=== PATIENT | male | born 1980 | race Caucasian/White ===

== ENCOUNTER 2021-01-14 18:59 | Inpatient (IN) | payer OTHER ==
[2021-01-14 21:17] VITALS: BMI 30.7
[2021-01-14] MEDS ORDERED: MAG HYDROX/AL HYDROX/SIMETH 30 ML UNIT-DOSE CUP PO PRN (21:36)
[2021-01-14] MEDS ORDERED: ACETAMINOPHEN 325 MG TABLET (FP) PO PRN (21:36)
[2021-01-14] MEDS ORDERED: MAGNESIUM CITRATE 300 ML BOTTLE PO PRN (21:36)
[2021-01-14] MEDS ORDERED: LOPERAMIDE HCL 2 MG CAPSULE PO PRN (21:36)
[2021-01-14] MEDS ORDERED: guaiFENesin 200 MG/10 ML 10 ML UNIT-DOSE CUPS PO PRN (21:36)
[2021-01-14] MEDS ORDERED: MAGNESIUM HYDROX 2400MG/30ML ORAL SUSPENSION 30 ML CUP PO PRN (21:36)
[2021-01-14] MEDS ORDERED: P-EPHED 60MG/TRIPROLIDI 2.5MG TABLET PO PRN (21:36)
[2021-01-14] MEDS ORDERED: MENTHOL/PHENOL 1 EACH UD MM PRN (21:36)
[2021-01-14] MEDS ORDERED: MELATONIN 5 MG TABLETS PO SCH (22:00)
[2021-01-14] MEDS ORDERED: TUBERCULIN PPD 5 TU/0.1ML VIAL ID ONE (22:52)
[2021-01-14] MEDS: THIAMINE HCL 100 MG TABLET (FP) PO SCH (22:53)
[2021-01-15] MEDS: hydrOXYzine PAMOATE 25 MG CAPSULE (FP) PO PRN ×2 (06:31→17:30)
[2021-01-15] MEDS: IBUPROFEN 400 MG TABLET (FP) PO PRN ×2 (06:31→17:30)
[2021-01-15] MEDS: PRENATAL VITAMINS W/ FOLIC ACID TABLET (FP) PO SCH (11:13)
[2021-01-15] MEDS: FLUoxetine HCL 20 MG CAPSULE PO SCH (15:14)
[2021-01-15] MEDS: THIAMINE HCL 100 MG TABLET (FP) PO SCH (21:00)
[2021-01-15] MEDS ORDERED: SUVOREXANT 10 MG TABLET PO PRN (22:00)
[2021-01-16] MEDS: PRENATAL VITAMINS W/ FOLIC ACID TABLET (FP) PO SCH (10:45)
[2021-01-16] MEDS: FLUoxetine HCL 20 MG CAPSULE PO SCH (10:45)
[2021-01-16] MEDS: THIAMINE HCL 100 MG TABLET (FP) PO SCH (23:27)
[2021-01-17] MEDS: PRENATAL VITAMINS W/ FOLIC ACID TABLET (FP) PO SCH (10:20)
[2021-01-17] MEDS: FLUoxetine HCL 20 MG CAPSULE PO SCH (10:20)
[2021-01-17] MEDS: SUVOREXANT 15 MG TABLET PO PRN (21:02)
[2021-01-17] MEDS: THIAMINE HCL 100 MG TABLET (FP) PO SCH (21:02)
[2021-01-17] MEDS: TOLNAFTATE 1% CREAM 15 GM TUBE TP SCH (21:03)
[2021-01-18] MEDS: PRENATAL VITAMINS W/ FOLIC ACID TABLET (FP) PO SCH (10:27)
[2021-01-18] MEDS: FLUoxetine HCL 20 MG CAPSULE PO SCH (10:28)
[2021-01-18] MEDS: TOLNAFTATE 1% CREAM 15 GM TUBE TP SCH ×2 (10:29→21:36)
[2021-01-18 14:07] LABS: SARS-CoV-2 NAA Not Detected (Not Detected)
[2021-01-18] MEDS: SUVOREXANT 15 MG TABLET PO PRN (21:34)
[2021-01-18] MEDS: hydrOXYzine PAMOATE 25 MG CAPSULE (FP) PO PRN (21:34)
[2021-01-18] MEDS: THIAMINE HCL 100 MG TABLET (FP) PO SCH (21:34)
[2021-01-18] MEDS: IBUPROFEN 400 MG TABLET (FP) PO PRN (21:35)
[2021-01-18] MEDS: CARBAMIDE PEROXIDE 6.5% OTIC 15 ML BOTTLE AU SCH (23:33)
[2021-01-19] MEDS: CARBAMIDE PEROXIDE 6.5% OTIC 15 ML BOTTLE AU SCH ×2 (10:30→21:09)
[2021-01-19] MEDS: FLUoxetine HCL 20 MG CAPSULE PO SCH (10:31)
[2021-01-19] MEDS: PRENATAL VITAMINS W/ FOLIC ACID TABLET (FP) PO SCH (10:31)
[2021-01-19] MEDS: TOLNAFTATE 1% CREAM 15 GM TUBE TP SCH ×2 (10:32→21:10)
[2021-01-19] MEDS: IBUPROFEN 400 MG TABLET (FP) PO PRN (21:09)
[2021-01-19] MEDS: THIAMINE HCL 100 MG TABLET (FP) PO SCH (21:09)
[2021-01-19] MEDS: SUVOREXANT 15 MG TABLET PO PRN (21:09)
[2021-01-20] MEDS: TOLNAFTATE 1% CREAM 15 GM TUBE TP SCH ×2 (09:39→22:44)
[2021-01-20] MEDS: CARBAMIDE PEROXIDE 6.5% OTIC 15 ML BOTTLE AU SCH ×2 (09:39→21:35)
[2021-01-20] MEDS: PRENATAL VITAMINS W/ FOLIC ACID TABLET (FP) PO SCH (09:39)
[2021-01-20] MEDS: FLUoxetine HCL 20 MG CAPSULE PO SCH (09:39)
[2021-01-20] MEDS: THIAMINE HCL 100 MG TABLET (FP) PO SCH (21:32)
[2021-01-20] MEDS: SUVOREXANT 15 MG TABLET PO PRN (21:32)
[2021-01-20] MEDS: IBUPROFEN 400 MG TABLET (FP) PO PRN (21:33)
[2021-01-21] MEDS: PRENATAL VITAMINS W/ FOLIC ACID TABLET (FP) PO SCH (10:07)
[2021-01-21] MEDS: FLUoxetine HCL 20 MG CAPSULE PO SCH (10:07)
[2021-01-21] MEDS: CARBAMIDE PEROXIDE 6.5% OTIC 15 ML BOTTLE AU SCH ×2 (10:07→22:10)
[2021-01-21] MEDS: hydrOXYzine PAMOATE 25 MG CAPSULE (FP) PO PRN (10:07)
[2021-01-21] MEDS: IBUPROFEN 400 MG TABLET (FP) PO PRN (10:08)
[2021-01-21] MEDS: TOLNAFTATE 1% CREAM 15 GM TUBE TP SCH ×2 (10:09→21:07)
[2021-01-21] MEDS ORDERED: LIDOCAINE VISCOUS 2% ORAL/TOP 15 ML UNIT-DOSE CUP MM PRN (10:40)
[2021-01-21] MEDS: AMOXICILLIN 500 MG CAPSULE (FP) PO SCH ×2 (12:41→20:45)
[2021-01-21] MEDS: VITAMINS A AND D TOPICAL OINTMENT 60 GM TUBE TP SCH ×3 (12:42→23:44)
[2021-01-21] MEDS: SUVOREXANT 15 MG TABLET PO PRN (21:07)
[2021-01-21] MEDS: THIAMINE HCL 100 MG TABLET (FP) PO SCH (21:07)
[2021-01-22] MEDS: VITAMINS A AND D TOPICAL OINTMENT 60 GM TUBE TP SCH ×4 (06:13→23:53)
[2021-01-22] MEDS: AMOXICILLIN 500 MG CAPSULE (FP) PO SCH ×3 (06:13→20:50)
[2021-01-22] MEDS: PRENATAL VITAMINS W/ FOLIC ACID TABLET (FP) PO SCH (10:01)
[2021-01-22] MEDS: FLUoxetine HCL 20 MG CAPSULE PO SCH (10:01)
[2021-01-22] MEDS: TOLNAFTATE 1% CREAM 15 GM TUBE TP SCH ×2 (10:02→21:20)
[2021-01-22] MEDS: CARBAMIDE PEROXIDE 6.5% OTIC 15 ML BOTTLE AU SCH ×2 (10:02→22:41)
[2021-01-22] MEDS: SUVOREXANT 15 MG TABLET PO PRN (21:20)
[2021-01-22] MEDS: THIAMINE HCL 100 MG TABLET (FP) PO SCH (21:20)
[2021-01-23] MEDS: VITAMINS A AND D TOPICAL OINTMENT 60 GM TUBE TP SCH ×3 (06:06→19:08)
[2021-01-23] MEDS: AMOXICILLIN 500 MG CAPSULE (FP) PO SCH ×3 (06:06→21:17)
[2021-01-23] MEDS: FLUoxetine HCL 20 MG CAPSULE PO SCH (09:36)
[2021-01-23] MEDS: TOLNAFTATE 1% CREAM 15 GM TUBE TP SCH ×2 (09:36→21:18)
[2021-01-23] MEDS: PRENATAL VITAMINS W/ FOLIC ACID TABLET (FP) PO SCH (09:36)
[2021-01-23] MEDS: CARBAMIDE PEROXIDE 6.5% OTIC 15 ML BOTTLE AU SCH ×2 (09:37→21:19)
[2021-01-23] MEDS: THIAMINE HCL 100 MG TABLET (FP) PO SCH (21:17)
[2021-01-23] MEDS: SUVOREXANT 15 MG TABLET PO PRN (21:18)
[2021-01-24] MEDS: VITAMINS A AND D TOPICAL OINTMENT 60 GM TUBE TP SCH ×4 (01:10→19:11)
[2021-01-24] MEDS: AMOXICILLIN 500 MG CAPSULE (FP) PO SCH ×3 (04:01→21:19)
[2021-01-24] MEDS: FLUoxetine HCL 20 MG CAPSULE PO SCH (09:42)
[2021-01-24] MEDS: PRENATAL VITAMINS W/ FOLIC ACID TABLET (FP) PO SCH (09:43)
[2021-01-24] MEDS: TOLNAFTATE 1% CREAM 15 GM TUBE TP SCH ×2 (09:43→21:20)
[2021-01-24] MEDS: CARBAMIDE PEROXIDE 6.5% OTIC 15 ML BOTTLE AU SCH ×2 (09:43→21:20)
[2021-01-24] MEDS: THIAMINE HCL 100 MG TABLET (FP) PO SCH (21:19)
[2021-01-24] MEDS: SUVOREXANT 15 MG TABLET PO PRN (21:19)
[2021-01-24] MEDS: IBUPROFEN 400 MG TABLET (FP) PO PRN (22:30)
[2021-01-25] MEDS: VITAMINS A AND D TOPICAL OINTMENT 60 GM TUBE TP SCH ×5 (00:17→23:30)
[2021-01-25] MEDS: AMOXICILLIN 500 MG CAPSULE (FP) PO SCH ×3 (06:20→20:45)
[2021-01-25] MEDS: CARBAMIDE PEROXIDE 6.5% OTIC 15 ML BOTTLE AU SCH ×2 (12:35→23:29)
[2021-01-25] MEDS: TOLNAFTATE 1% CREAM 15 GM TUBE TP SCH ×2 (12:35→21:16)
[2021-01-25] MEDS: PRENATAL VITAMINS W/ FOLIC ACID TABLET (FP) PO SCH (12:35)
[2021-01-25] MEDS: FLUoxetine HCL 20 MG CAPSULE PO SCH (12:35)
[2021-01-25] MEDS: SUVOREXANT 15 MG TABLET PO PRN (21:15)
[2021-01-25] MEDS: THIAMINE HCL 100 MG TABLET (FP) PO SCH (21:15)
[2021-01-26] MEDS: AMOXICILLIN 500 MG CAPSULE (FP) PO SCH ×3 (06:05→20:45)
[2021-01-26] MEDS: VITAMINS A AND D TOPICAL OINTMENT 60 GM TUBE TP SCH ×4 (06:42→23:59)
[2021-01-26] MEDS: CARBAMIDE PEROXIDE 6.5% OTIC 15 ML BOTTLE AU SCH ×2 (10:44→21:04)
[2021-01-26] MEDS: FLUoxetine HCL 20 MG CAPSULE PO SCH (10:45)
[2021-01-26] MEDS: TOLNAFTATE 1% CREAM 15 GM TUBE TP SCH ×2 (10:45→21:05)
[2021-01-26] MEDS: PRENATAL VITAMINS W/ FOLIC ACID TABLET (FP) PO SCH (10:45)
[2021-01-26] MEDS: THIAMINE HCL 100 MG TABLET (FP) PO SCH (21:03)
[2021-01-26] MEDS: SUVOREXANT 5 MG TABLET PO PRN (21:04)
[2021-01-26] MEDS: IBUPROFEN 400 MG TABLET (FP) PO PRN (22:58)
[2021-01-27] MEDS: VITAMINS A AND D TOPICAL OINTMENT 60 GM TUBE TP SCH ×4 (06:00→23:19)
[2021-01-27] MEDS: AMOXICILLIN 500 MG CAPSULE (FP) PO SCH ×3 (06:00→21:14)
[2021-01-27] MEDS: FLUoxetine HCL 20 MG CAPSULE PO SCH (10:44)
[2021-01-27] MEDS: TOLNAFTATE 1% CREAM 15 GM TUBE TP SCH ×2 (10:45→21:16)
[2021-01-27] MEDS: PRENATAL VITAMINS W/ FOLIC ACID TABLET (FP) PO SCH (10:45)
[2021-01-27] MEDS: CARBAMIDE PEROXIDE 6.5% OTIC 15 ML BOTTLE AU SCH ×2 (10:45→21:16)
[2021-01-27] MEDS: THIAMINE HCL 100 MG TABLET (FP) PO SCH (21:14)
[2021-01-27] MEDS: SUVOREXANT 5 MG TABLET PO PRN (21:15)
[2021-01-28] MEDS: VITAMINS A AND D TOPICAL OINTMENT 60 GM TUBE TP SCH ×3 (05:55→18:40)
[2021-01-28] MEDS: AMOXICILLIN 500 MG CAPSULE (FP) PO SCH (05:55)
[2021-01-28] MEDS: TOLNAFTATE 1% CREAM 15 GM TUBE TP SCH ×2 (10:00→21:03)
[2021-01-28] MEDS: CARBAMIDE PEROXIDE 6.5% OTIC 15 ML BOTTLE AU SCH ×2 (10:00→23:32)
[2021-01-28] MEDS: PRENATAL VITAMINS W/ FOLIC ACID TABLET (FP) PO SCH (10:00)
[2021-01-28] MEDS: FLUoxetine HCL 20 MG CAPSULE PO SCH (10:00)
[2021-01-28] MEDS: THIAMINE HCL 100 MG TABLET (FP) PO SCH (21:01)
[2021-01-28] MEDS: SUVOREXANT 5 MG TABLET PO PRN (21:02)
[2021-01-28] MEDS ORDERED: SUVOREXANT 10 MG TABLET PO PRN (22:00)
[2021-01-29] MEDS: VITAMINS A AND D TOPICAL OINTMENT 60 GM TUBE TP SCH ×5 (00:03→23:40)
[2021-01-29] MEDS: PRENATAL VITAMINS W/ FOLIC ACID TABLET (FP) PO SCH (09:45)
[2021-01-29] MEDS: FLUoxetine HCL 20 MG CAPSULE PO SCH (09:45)
[2021-01-29] MEDS: CARBAMIDE PEROXIDE 6.5% OTIC 15 ML BOTTLE AU SCH ×2 (09:46→22:19)
[2021-01-29] MEDS: TOLNAFTATE 1% CREAM 15 GM TUBE TP SCH ×2 (09:46→22:19)
[2021-01-29] MEDS: THIAMINE HCL 100 MG TABLET (FP) PO SCH (21:02)
[2021-01-29] MEDS: SUVOREXANT 5 MG TABLET PO PRN (21:46)
[2021-01-30] MEDS: VITAMINS A AND D TOPICAL OINTMENT 60 GM TUBE TP SCH (07:03)
[2021-01-30] MEDS ORDERED: VITAMINS A AND D TOPICAL OINTMENT 60 GM TUBE TP PRN (08:40)
[2021-01-30] MEDS: hydrOXYzine PAMOATE 25 MG CAPSULE (FP) PO PRN (09:37)
[2021-01-30] MEDS: PRENATAL VITAMINS W/ FOLIC ACID TABLET (FP) PO SCH (09:37)
[2021-01-30] MEDS: FLUoxetine HCL 20 MG CAPSULE PO SCH (09:37)
[2021-01-30] MEDS: CARBAMIDE PEROXIDE 6.5% OTIC 15 ML BOTTLE AU SCH ×2 (09:37→22:50)
[2021-01-30] MEDS: TOLNAFTATE 1% CREAM 15 GM TUBE TP SCH ×2 (09:38→21:09)
[2021-01-30] MEDS: THIAMINE HCL 100 MG TABLET (FP) PO SCH (21:08)
[2021-01-30] MEDS: SUVOREXANT 5 MG TABLET PO PRN (21:08)
[2021-01-31] MEDS: PRENATAL VITAMINS W/ FOLIC ACID TABLET (FP) PO SCH (09:34)
[2021-01-31] MEDS: FLUoxetine HCL 20 MG CAPSULE PO SCH (09:34)
[2021-01-31] MEDS: CARBAMIDE PEROXIDE 6.5% OTIC 15 ML BOTTLE AU SCH ×2 (09:34→22:57)
[2021-01-31] MEDS: TOLNAFTATE 1% CREAM 15 GM TUBE TP SCH ×2 (09:35→21:20)
[2021-01-31] MEDS: SUVOREXANT 5 MG TABLET PO PRN (21:19)
[2021-01-31] MEDS: THIAMINE HCL 100 MG TABLET (FP) PO SCH (21:19)
[2021-02-01] MEDS: FLUoxetine HCL 20 MG CAPSULE PO SCH (09:26)
[2021-02-01] MEDS: PRENATAL VITAMINS W/ FOLIC ACID TABLET (FP) PO SCH (09:26)
[2021-02-01] MEDS: CARBAMIDE PEROXIDE 6.5% OTIC 15 ML BOTTLE AU SCH ×2 (09:27→21:08)
[2021-02-01] MEDS: TOLNAFTATE 1% CREAM 15 GM TUBE TP SCH ×2 (09:27→21:08)
[2021-02-01] MEDS: THIAMINE HCL 100 MG TABLET (FP) PO SCH (21:08)
[2021-02-01] MEDS: hydrOXYzine PAMOATE 25 MG CAPSULE (FP) PO PRN (21:09)
[2021-02-02] MEDS: FLUoxetine HCL 20 MG CAPSULE PO SCH (10:14)
[2021-02-02] MEDS: PRENATAL VITAMINS W/ FOLIC ACID TABLET (FP) PO SCH (10:14)
[2021-02-02] MEDS: CARBAMIDE PEROXIDE 6.5% OTIC 15 ML BOTTLE AU SCH ×2 (10:15→21:09)
[2021-02-02] MEDS: TOLNAFTATE 1% CREAM 15 GM TUBE TP SCH ×2 (10:15→21:09)
[2021-02-02] MEDS: THIAMINE HCL 100 MG TABLET (FP) PO SCH (21:08)
[2021-02-03 07:44] VITALS: BP 135/84; PULSE 68; TEMP 97.8
[2021-02-03] MEDS: PRENATAL VITAMINS W/ FOLIC ACID TABLET (FP) PO SCH (10:04)
[2021-02-03] MEDS: FLUoxetine HCL 20 MG CAPSULE PO SCH (10:05)
[2021-02-03] MEDS: CARBAMIDE PEROXIDE 6.5% OTIC 15 ML BOTTLE AU SCH ×2 (10:05→22:27)
[2021-02-03] MEDS: TOLNAFTATE 1% CREAM 15 GM TUBE TP SCH ×2 (10:05→21:00)
[2021-02-03] MEDS: THIAMINE HCL 100 MG TABLET (FP) PO SCH (21:00)
[2021-02-03] MEDS: hydrOXYzine PAMOATE 25 MG CAPSULE (FP) PO PRN (21:00)
[2021-02-04] MEDS: CARBAMIDE PEROXIDE 6.5% OTIC 15 ML BOTTLE AU SCH ×2 (09:29→21:23)
[2021-02-04] MEDS: PRENATAL VITAMINS W/ FOLIC ACID TABLET (FP) PO SCH (09:29)
[2021-02-04] MEDS: TOLNAFTATE 1% CREAM 15 GM TUBE TP SCH ×2 (09:29→21:23)
[2021-02-04] MEDS: FLUoxetine HCL 20 MG CAPSULE PO SCH (09:29)
[2021-02-04] MEDS: hydrOXYzine PAMOATE 25 MG CAPSULE (FP) PO PRN (21:23)
[2021-02-04] MEDS: THIAMINE HCL 100 MG TABLET (FP) PO SCH (21:23)
[2021-02-05] MEDS: FLUoxetine HCL 20 MG CAPSULE PO SCH (11:41)
[2021-02-05] MEDS: PRENATAL VITAMINS W/ FOLIC ACID TABLET (FP) PO SCH (11:41)
[2021-02-05] MEDS: CARBAMIDE PEROXIDE 6.5% OTIC 15 ML BOTTLE AU SCH ×2 (15:58→21:22)
[2021-02-05] MEDS: TOLNAFTATE 1% CREAM 15 GM TUBE TP SCH ×2 (15:58→21:22)
[2021-02-05] MEDS: THIAMINE HCL 100 MG TABLET (FP) PO SCH (21:21)
[2021-02-05] MEDS: hydrOXYzine PAMOATE 25 MG CAPSULE (FP) PO PRN (21:21)
[2021-02-06] MEDS: CARBAMIDE PEROXIDE 6.5% OTIC 15 ML BOTTLE AU SCH ×2 (09:53→21:17)
[2021-02-06] MEDS: PRENATAL VITAMINS W/ FOLIC ACID TABLET (FP) PO SCH (09:53)
[2021-02-06] MEDS: FLUoxetine HCL 20 MG CAPSULE PO SCH (09:53)
[2021-02-06] MEDS: TOLNAFTATE 1% CREAM 15 GM TUBE TP SCH ×2 (09:53→21:17)
[2021-02-06] MEDS: THIAMINE HCL 100 MG TABLET (FP) PO SCH (21:15)
[2021-02-06] MEDS: hydrOXYzine PAMOATE 25 MG CAPSULE (FP) PO PRN (21:16)
[2021-02-07] MEDS: hydrOXYzine PAMOATE 25 MG CAPSULE (FP) PO PRN (09:18)
[2021-02-07] MEDS: PRENATAL VITAMINS W/ FOLIC ACID TABLET (FP) PO SCH (09:18)
[2021-02-07] MEDS: CARBAMIDE PEROXIDE 6.5% OTIC 15 ML BOTTLE AU SCH (09:20)
[2021-02-07] MEDS: TOLNAFTATE 1% CREAM 15 GM TUBE TP SCH (09:20)
[2021-02-07] MEDS: FLUoxetine HCL 20 MG CAPSULE PO SCH (10:20)
== END 2021-02-07 11:00 | disposition home or self-care (01) | DRG 772 ==
LOC: YASAS 18:59 → Y3W 22:12
PROVIDERS: ADMIT Allergy & Immunology; ATTEND Allergy & Immunology
PROC: HZ42ZZZ Group Counseling for Substance Abuse Treatment, Cognitive-Behavioral (ICD-10-PCS; principal; 2021-01-14)
DX: F14.20 Cocaine dependence, uncomplicated (principal); F19.24 Other psychoactive substance dependence with psychoactive substance-induced mood disorder; F19.282 Other psychoactive substance dependence with psychoactive substance-induced sleep disorder; F31.9 Bipolar disorder, unspecified; M54.59 Other low back pain; G89.29 Other chronic pain; L84 Corns and callosities; H92.02 Otalgia, left ear; Z86.19 Personal history of other infectious and parasitic diseases; Z59.00 Homelessness unspecified
CPT/HCPCS: C9803; U0003; U0005